=== PATIENT | male | born 1980 | race Caucasian/White ===

== ENCOUNTER 2022-04-08 13:00 | Emergency (ER) | payer BC ==
[~2022-04-08] VITALS: Ht 182.9 cm; Wt 83.9 kg
[2022-04-08] MEDS ORDERED: CRUTCH3 XX (15:35)
== END 2022-04-08 15:50 | disposition home or self-care (01) ==
LOC: ER 13:00
DX: S80.02XA Contusion of left knee, initial encounter (principal); V86.56XA Driver of dirt bike or motor/cross bike injured in nontraffic accident, initial encounter
CPT/HCPCS: 73562-LT; A9270; J1885